=== PATIENT | male | born 1995 | race Caucasian/White ===

== ENCOUNTER 2017-05-24 20:10 | Emergency (ER) | payer OTHER ==
[2017-05-24 20:30] VITALS: BP 116/67
--- NOTE | 2017-05-24 20:41 | EDM.PDOC ---
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 He believes that there is a piece of glass in the tissue as the laceration appears minor but he has a lot of pain when he palpates the area or novelty chain maker something. right palm Pain Score (Numeric/FACES): 2 - Related Data Allergies Allergy/AdvReac Type Severity Reaction Status Date / Time No Known Allergies Allergy Verified 05/24/17 20:29 Home Meds: Home Meds Cephalexin [Keflex] 500 mg PO TID #30 capsule 02/09/16 [Rx] Cephalexin [Keflex] 500 mg PO QID #28 capsule 05/24/17 [Rx] Past Medical History - Past Health History Medical/Surgical History: Denies Medical/Surgical History HEENT History: Reports: None Cardiovascular History: Reports: None Respiratory History: Reports: None Gastrointestinal History: Reports: None Genitourinary History: Reports: None Musculoskeletal History: Reports: None Neurological History: Reports: None Psychiatric History: Reports: None Endocrine/Metabolic History: Reports: None Hematologic History: Reports: None Dermatologic History: Reports: None - Infectious Disease History Infectious Disease History: Reports: None - Past Surgical History Head Surgeries/Procedures: Reports: None Social & Family History - Family History Family Medical History: Noncontributory - Tobacco Use Smoking Status *Q: Never Smoker - Recreational Drug Use Recreational Drug Use: No Review of Systems - Review of Systems Review Of Systems: ROS reveals no pertinent complaints other than HPI. ED EXAM, GENERAL - Physical Exam Exam: See Below Exam Limited By: No Limitations General Appearance: Alert, No Apparent Distress Ears: Normal External Exam Nose: Normal Inspection Throat/Mouth: Normal Inspection Head: Atraumatic, Normocephalic Neck: Normal Inspection Respiratory/Chest: No Respiratory Distress Cardiovascular: Normal Peripheral Pulses GI/Abdominal: Soft Extremities: Other (right thenar eminance angulated superficial laceration with FB demonstrated on XR) Neurological: Alert, Oriented Psychiatric: Normal Affect, Normal Mood Skin Exam: Warm, Dry, Intact, Normal Color, No Rash ED TRAUMA EXTREMITY PROCEDURES - Laceration/Wound Repair Right Hand Appearance: Subcutaneous Anesthetic Type: Local Local Anesthesia - Lidocaine (Xylocaine): 1% Plain Local Anesthetic Volume: 4cc Skin Prep: Chlorhexidine (Hibiciens) Course - Vital Signs Last Recorded V/S: Last Vital Signs Temp 36.1 C 05/24/17 20:29 Pulse 64 05/24/17 20:29 Resp 18 05/24/17 20:29 BP 116/67 05/24/17 20:29 Pulse Ox 98 05/24/17 20:29 - Orders/Labs/Meds Orders: Active Orders 24 hr Category Date Time Status Hand 2V Rt [CR] Stat Exams 05/24/17 20:29 Ordered - Re-Assessments/Exams Free Text/Narrative Re-Assessment/Exam: 05/24/17 21:38 Dr. Stauffer came in and easily removed the FB 4 x 7 mm. Wound scrubbed, left open and dressed. Departure - Departure Time of Disposition: 21:42 Disposition: Home, Self-Care 01 Condition: Good Clinical Impression: Foreign body (FB) in soft tissue - Discharge Information Referrals: PCP,None [Primary Care Provider] - Additional Instructions: 1. Keep wound covered when working. 2. Watch for signs of infection, report promptly 3. Take your antibiotic as directed. - My Orders Last 24 Hours: My Active Orders 05/24/17 20:29 Hand 2V Rt [CR] Stat - Assessment/Plan Last 24 Hours: My Active Orders 05/24/17 20:29 Hand 2V Rt [CR] Stat
[2017-05-24] MEDS ORDERED: Lidocaine 1% with EPINEPHrine 1:100,000 20 ML MDV INJECT ONE (21:14)
[2017-05-24] MEDS: Lidocaine 1% 20 ML MDV ONE ×2 (21:26→21:31)
[2017-05-24] MEDS ORDERED: Lidocaine 1% 20 ML MDV INJECT ONE (21:27)
--- NOTE | 2017-05-25 14:26 | CR ---
EXAM DATE: 05/24/17 PATIENT'S AGE: 22 Patient: ADRIANA JOHNS Facility: [place], [place] Site . Site : 1995 Study: XRay Extremity Right hand [id number] 8:43:19 PM Ordering Physician: Doctor Rubin Final Report: HISTORY: Laceration with glass foreign body in the thenar eminence. FINDINGS/IMPRESSION: Two views of the right hand demonstrates normal bone mineralization. There is normal alignment present. No fracture or dislocation. The AP image demonstrates a 7 x 4 mm triangular shaped radiopaque density along the radial aspect proximal to mid diaphysis of the 2nd metacarpal consistent with the history of glass foreign body. It is not confidently identified on the lateral radiograph. Dictated by Bell Raymundo MD @ 05/24/2017 8:56:31 PM Dictated by: Bell Raymundo MD @ 05/24/2017 20:56:50 (Electronic Signature) Report Signed by Proxy. VISH
== END 2017-05-24 21:50 | disposition home or self-care (01) ==
LOC: MW.ED 20:10
DX: S61.421A Laceration with foreign body of right hand, initial encounter (principal); W25.XXXA Contact with sharp glass, initial encounter
CPT/HCPCS: 73120-26-RT; 73120-RT; 99283

== ENCOUNTER 2019-01-12 18:02 | Emergency (ER) | payer OTHER ==
[2019-01-12 18:20] VITALS: BP 136/75; PULSE 122
--- NOTE | 2019-01-12 18:23 | EDM.PDOC ---
ED HPI GENERAL MEDICAL PROBLEM - General Chief Complaint: Lower Extremity Injury/Pain Stated Complaint: LT ANKLE INJURY Time Seen by Provider: 01/12/19 18:04 Source of Information: Reports: Patient History Limitations: Reports: No Limitations - History of Present Illness INITIAL COMMENTS - FREE TEXT/NARRATIVE: History of present illness: []Patient fell down 4 feet and landed on his left ankle and hurt a pop with swelling and pain over his lateral ankle.. He did not fall to the ground, hit his head or have any loss of consciousness. Patient denies any other pain. Review of systems: As per history of present illness and below otherwise all systems reviewed and negative. Past medical history: As per history of present illness and as reviewed below otherwise noncontributory. Surgical history: As per history of present illness and as reviewed below otherwise noncontributory. Social history: No reported history of drug or alcohol abuse. Family history: As per history of present illness and as reviewed below otherwise noncontributory. Physical exam: General: Well developed, well nourished in NAD HEENT: Atraumatic, normocephalic, pupils reactive, negative for conjunctival pallor or scleral icterus, mucous membranes moist, throat clear, neck supple, nontender, trachea midline. Lungs: Clear to auscultation, breath sounds equal bilaterally, chest nontender. Heart: S1S2, regular, negative for clicks, rubs, or JVD. Abdomen: NABS, Soft, nondistended, nontender. Negative for masses or hepatosplenomegaly. Negative for costovertebral tenderness. Pelvis: Stable nontender. Genitourinary: Deferred. Rectal: Deferred. Extremities: Swelling over the lateral malleolus of the left ankle. There is no ecchymosis or abrasions. Briscoe pedis pulses are palpable, moves toes and sensation is intact. Release tendon is palpated and intact without tenderness he does have pain in his posterior to the lateral malleolus, negative for cords or calf pain. Neurovascular unremarkable. Neuro: Awake, alert, oriented. Cranial nerves II through XII unremarkable. Cerebellum unremarkable. Motor and sensory unremarkable throughout. Exam nonfocal. Skin:warm and dry Diagnostics: X-ray left ankle-fracture or dislocation Therapeutics: Declined pain medicines, air splint, crutches ED Course: Stable Impression: Left ankle sprain Prescriptions: Diclofenac Plan: Take meds as directed, follow up with your primary care physician, return to ER if symptoms worsen or change. Definitive disposition and diagnosis as appropriate pending reevaluation and review of above. Ankle Pain Score (Numeric/FACES): 6 - Related Data Allergies Allergy/AdvReac Type Severity Reaction Status Date / Time No Known Allergies Allergy Verified 01/12/19 18:15 Home Meds: Home Meds Diclofenac Sodium [Voltaren] 75 mg PO BIDMEALS PRN #20 tab.cr 01/12/19 [Rx] Past Medical History - Past Health History Medical/Surgical History: Denies Medical/Surgical History HEENT History: Reports: None Cardiovascular History: Reports: None Respiratory History: Reports: None Gastrointestinal History: Reports: None Genitourinary History: Reports: None Musculoskeletal History: Reports: None Neurological History: Reports: None Psychiatric History: Reports: None Endocrine/Metabolic History: Reports: None Hematologic History: Reports: None Immunologic History: Reports: None Oncologic (Cancer) History: Reports: None Dermatologic History: Reports: None - Infectious Disease History Infectious Disease History: Reports: None - Past Surgical History Head Surgeries/Procedures: Reports: None Social & Family History - Family History Family Medical History: Noncontributory - Caffeine Use Caffeine Use: Reports: Soda Review of Systems - Review of Systems Review Of Systems: See Below ED EXAM, GENERAL - Physical Exam Exam: See Below Course - Vital Signs Last Recorded V/S: Last Vital Signs Temp 96.8 F 01/12/19 18:16 Pulse 122 H 01/12/19 18:16 Resp 18 01/12/19 18:16 BP 136/75 01/12/19 18:16 Pulse Ox 97 01/12/19 18:16 - Orders/Labs/Meds Orders: Active Orders 24 hr Category Date Time Status Splinting [RC] ASDIRECTED Care 01/12/19 18:38 Ordered Departure - Departure Time of Disposition: 18:41 Disposition: Home, Self-Care 01 Condition: Good Clinical Impression: Left ankle sprain Qualifiers: Encounter type: initial encounter Involved ligament of ankle: unspecified ligament Qualified Code(s): S93.402A - Sprain of unspecified ligament of left ankle, initial encounter - Discharge Information *PRESCRIPTION DRUG MONITORING PROGRAM REVIEWED*: No *COPY OF PRESCRIPTION DRUG MONITORING REPORT IN PATIENT RAJI: No Prescriptions: Diclofenac Sodium [Voltaren] 75 mg PO BIDMEALS PRN #20 tab.cr PRN Reason: Pain Referrals: PCP,Unknown [Primary Care Provider] - Forms: ED Department Discharge Additional Instructions: The following information is given to patients seen in the emergency department who are being discharged to home. This information is to outline your options for follow-up care. We provide all patients seen in our emergency department with a follow-up referral. The need for follow-up, as well as the timing and circumstances, are variable depending upon the specifics of your emergency department visit. If you don't have a primary care physician on staff, we will provide you with a referral. We always advise you to contact your personal physician following an emergency department visit to inform them of the circumstance of the visit and for follow-up with them and/or the need for any referrals to a consulting specialist. The emergency department will also refer you to a specialist when appropriate. This referral assures that you have the opportunity for follow-up care with a specialist. All of these measure are taken in an effort to provide you with optimal care, which includes your follow-up. Under all circumstances we always encourage you to contact your private physician who remains a resource for coordinating your care. When calling for follow-up care, please make the office aware that this follow-up is from your recent emergency room visit. If for any reason you are refused follow-up, please contact the [facility] Emergency Department at and asked to speak to the emergency department charge nurse. Take meds as directed, follow up with your primary care physician, return to ER if symptoms worsen or change. [facility] [address] [place] [id number] - My Orders Last 24 Hours: My Active Orders 01/12/19 18:38 Splinting [RC] ASDIRECTED - Assessment/Plan Last 24 Hours: My Active Orders 01/12/19 18:38 Splinting [RC] ASDIRECTED
--- NOTE | 2019-01-12 18:34 | CR ---
INDICATION: Left ankle pain TECHNIQUE: Ankle radiograph 3 views left COMPARISON: None FINDINGS: Bone: No acute fractures or aggressive bone lesions are identified. Joint: The ankle mortise joint and the visualized hindfoot joints are unremarkable in appearance. No significant ankle effusion is seen. Soft tissue: The Kager fat pad and the Achilles` tendon is normal in appearance. No radiopaque foreign bodies are seen. IMPRESSION: 1. No acute osseous injuries or abnormalities are noted. Dictated by: Severiano Humphrey MD @ 01/12/2019 18:33:06 (Electronically Signed)
== END 2019-01-12 19:15 | disposition home or self-care (01) ==
LOC: MW.ED 18:02
DX: S93.402A Sprain of unspecified ligament of left ankle, initial encounter (principal); W01.0XXA Fall on same level from slipping, tripping and stumbling without subsequent striking against object, initial encounter
CPT/HCPCS: 73610-26-LT; 73610-LT; 99283; 99283-25

== ENCOUNTER 2025-01-19 17:09 | Emergency (ER) | payer BC ==
[2025-01-19] MEDS ORDERED: Sodium Chloride 0.9% 10 ML Syringe FLUSH PRN (17:58)
[2025-01-19] MEDS ORDERED: Sodium Chloride 0.9% 2.5 ML Syringe FLUSH PRN (17:58)
[2025-01-19] MEDS: Ketorolac 30 MG/ML SDV IVPUSH ONE (18:26)
[2025-01-19] MEDS: Dexamethasone Sod Phos Preservative Free 10 MG/ML Vial IVPUSH ONE (18:26)
[2025-01-19 18:36] LABS: BASOPHILS ABSOLUTE AUTO 0.06 K/uL (0.00-0.20); BASOPHILS PERCENT AUTO 0.5 % (0.0-1.0); EOSINOPHILS ABSOLUTE AUTO 0.13 K/uL (0.00-0.45); EOSINOPHILS PERCENT AUTO 1.0 % (0.0-6.0); IMMATURE GRAN ABSOLUTE AUTO 0.03 K/uL (0.00-0.05); IMMATURE GRAN PERCENT AUTO 0.2 % (0.0-0.4); LYMPHOCYTES ABSOLUTE AUTO 2.22 K/uL (1.00-4.80); LYMPHOCYTES PERCENT AUTO 16.8 % (24.0-44.0); MEAN PLATELET VOLUME 9.3 fL (9.4-12.4); MONOCYTES ABSOLUTE AUTO 1.02 K/uL (0.00-0.80); MONOCYTES PERCENT AUTO 7.7 % (0.0-8.0); NEUTROPHILS ABSOLUTE AUTO 9.72 K/uL (1.80-7.70); NEUTROPHILS PERCENT AUTO 73.8 % (41.0-71.0); NRBC ABSOLUTE 0.00 K/uL (0.00-0.02); NRBC PERCENT 0.0 /100WBC (0.0-0.2); PLATELET COUNT,PLT 229 K/uL (150-400); RED BLOOD CELL COUNT 5.12 M/uL (4.52-5.90); WHITE BLOOD CELL COUNT,WBC 13.18 K/uL (3.9-11.3)
[2025-01-19] MEDS: Iopamidol 755 Mg/ML 100 ML Bottle IVPUSH ONE (18:45)
[2025-01-19 19:15] LABS: A/G RATIO 1.3 (0.9-1.6); ALANINE AMINOTRANSFERASE,ALT 40.0 IU/L (14-63); ASPARTATE AMNIOTRANSFERASE,AST 39.0 IU/L (15-37); BILIRUBIN TOTAL 0.4 mg/dL (0.2-1.0); BLOOD UREA NITROGEN,BUN 14.0 mg/dL (7.0-18.0); CARBON DIOXIDE,CO2 28.9 mmol/L (21.0-32.0); CHLORIDE,CL 104.0 mmol/L (98-107); CREATININE 1.5 mg/dL (0.8-1.3); EST CRCL DRUG DOSING (CG) 68.4 mL/min; GLUCOSE RANDOM 94.0 mg/dL (74-106); POTASSIUM,K 3.9 mmol/L (3.5-5.1); PROTEIN TOTAL,TP 7.1 g/dL (6.4-8.2); SODIUM,NA 141.0 mmol/L (136-148); TSH ULTRASENSITIVE 2.44 uIU/mL (0.36-3.74)
[2025-01-19 19:19] LABS: ESTIMATED GFR 63.0 mL/min (>60)
[2025-01-19 19:50] VITALS: BP 124/76; PULSE 72
== END 2025-01-19 19:49 | disposition home or self-care (01) ==
LOC: MW.ED 17:09
DX: M54.2 Cervicalgia (principal); Z75.3 Unavailability and inaccessibility of health-care facilities
CPT/HCPCS: 36415; 70491; 80053; 84443; 85025; 87651; 96361; 96374; 96375; 99284; J1100; J1885; J7030; Q9967; 99283